=== PATIENT | male | born 1960 | race Caucasian/White ===

== ENCOUNTER → 2025-03-10 14:00 | Outpatient (BNVA) | payer BC, MEDICARE, MEDICAID, SELFPAY | PROVIDERS: PCP Family Medicine; Referring Provider Family Medicine; Visit Provider Specialist | DX: G31.2 Degeneration of nervous system due to alcohol (principal); F10.20 Alcohol dependence, uncomplicated; G62.9 Polyneuropathy, unspecified; G37.9 Demyelinating disease of central nervous system, unspecified; R41.3 Other amnesia | CPT/HCPCS: 36415; 80307; 82746; 83520; 84425; 84439; 84443; 85651; 86160; 86162; 86235; 86255; 86376 ==